=== PATIENT | male | born 1985 | race Caucasian/White ===

== ENCOUNTER 2017-01-09 23:13 | Emergency (ER) | payer SELFPAY ==
[~2017-01-09] VITALS: Ht 170.2 cm; Wt 75.0 kg
[2017-01-09 23:29] VITALS: BP 154/70
== END 2017-01-10 | disposition left against medical advice (07) ==
LOC: ER 23:13
DX: R55 Syncope and collapse (principal); F10.20 Alcohol dependence, uncomplicated
CPT/HCPCS: 99283